=== PATIENT | female | born 1995 | race American Indian/Alaskan Native ===

== ENCOUNTER 2019-04-24 08:54 | Emergency (ER) | payer SELFPAY ==
[2019-04-24 09:06] VITALS: BP 107/65
--- NOTE | 2019-04-24 10:06 | Emergency Department Report ---
ED Syncope HPI - General Chief Complaint: Syncope Stated Complaint: PASSED OUT Time Seen by Provider: 04/24/19 09:58 Source: patient Exam Limitations: no limitations - History of Present Illness Initial Comments: This is a 23-year-old healthy female with no prior medical history presents the ED today after one episode of syncopal episode while she was at work this morning. Patient states that she felt a little sweaty and nauseous before passing out while at work. Patient states she did not hit her head or have any injuries anywhere else. Patient denies fever/chills/nausea vomiting/dizziness/headache/chest pain/shortness of breath or any other symptoms Timing/Prior Episodes: no prior history, single episode today Precipitating Factors: Positive: diaphoresis Context: sitting Loss of Consciousness: brief (seconds) Current Symptoms: back to normal - Related Data Allergies/Adverse Reactions: Allergies No Known Allergies Allergy (Verified 04/24/19 09:15) Home Medications: Ambulatory Orders Ciprofloxacin HCl [Ciprofloxacin TAB] 500 mg PO Q12HR #14 tab 04/24/19 ED Review of Systems ROS: Stated complaint: PASSED OUT Other details as noted in HPI Comment: All other systems reviewed and negative ED Past Medical Hx - Past Medical History Previous Medical History?: No - Surgical History Past Surgical History?: No - Social History Smoking Status: Never Smoker Substance Use Type: None - Medications Home Medications: Home Medications Medication Instructions Recorded Confirmed Last Taken Type Ciprofloxacin HCl [Ciprofloxacin 500 mg PO Q12HR #14 tab 04/24/19 Unknown Rx TAB] ED Physical Exam - General Limitations: No Limitations General appearance: alert, in no apparent distress - Head Head exam: Present: atraumatic, normocephalic - Eye Eye exam: Present: normal appearance - ENT ENT exam: Present: mucous membranes moist - Neck Neck exam: Present: normal inspection - Respiratory Respiratory exam: Present: normal lung sounds bilaterally. Absent: respiratory distress - Cardiovascular Cardiovascular Exam: Present: regular rate, normal rhythm. Absent: systolic murmur, diastolic murmur, rubs, gallop - GI/Abdominal GI/Abdominal exam: Present: soft, normal bowel sounds - Extremities Exam Extremities exam: Present: normal inspection - Back Exam Back exam: Present: normal inspection - Neurological Exam Neurological exam: Present: alert, oriented X3 - Psychiatric Psychiatric exam: Present: normal affect, normal mood - Skin Skin exam: Present: warm, dry, intact, normal color. Absent: rash ED Course Vital Signs 04/24/19 09:05 Temperature 98.6 F Pulse Rate 70 Respiratory 16 Rate Blood Pressure 107/65 O2 Sat by Pulse 98 Oximetry ED Medical Decision Making - Lab Data Result diagrams: 04/24/19 10:06 04/24/19 10:06 Laboratory Last Values WBC 8.0 K/mm3 (4.5-11.0) 04/24/19 10:06 RBC 4.51 M/mm3 (3.65-5.03) 04/24/19 10:06 Hgb 11.6 gm/dl (10.1-14.3) 04/24/19 10:06 Hct 34.0 % (30.3-42.9) 04/24/19 10:06 MCV 76 fl (79-97) L 04/24/19 10:06 MCH 26 pg (28-32) L 04/24/19 10:06 MCHC 34 % (30-34) 04/24/19 10:06 RDW 18.0 % (13.2-15.2) H 04/24/19 10:06 Plt Count 374 K/mm3 (140-440) 04/24/19 10:06 Lymph % (Auto) 20.3 % (13.4-35.0) 04/24/19 10:06 [place] % (Auto) 4.8 % (0.0-7.3) 04/24/19 10:06 Eos % (Auto) 0.4 % (0.0-4.3) 04/24/19 10:06 Baso % (Auto) 0.3 % (0.0-1.8) 04/24/19 10:06 Lymph # 1.6 K/mm3 (1.2-5.4) 04/24/19 10:06 [place] # 0.4 K/mm3 (0.0-0.8) 04/24/19 10:06 Eos # 0.0 K/mm3 (0.0-0.4) 04/24/19 10:06 Baso # 0.0 K/mm3 (0.0-0.1) 04/24/19 10:06 Seg Neutrophils % 74.2 % (40.0-70.0) H 04/24/19 10:06 Seg Neutrophils # 5.9 K/mm3 (1.8-7.7) 04/24/19 10:06 Sodium 140 mmol/L (137-145) 04/24/19 10:06 Potassium 4.3 mmol/L (3.6-5.0) 04/24/19 10:06 Chloride 104.4 mmol/L (98-107) 04/24/19 10:06 Carbon Dioxide 21 mmol/L (22-30) L 04/24/19 10:06 Anion Gap 19 mmol/L 04/24/19 10:06 BUN 10 mg/dL (7-17) 04/24/19 10:06 Creatinine 0.6 mg/dL (0.7-1.2) L 04/24/19 10:06 Estimated GFR > 60 ml/min 04/24/19 10:06 BUN/Creatinine Ratio 17 % 04/24/19 10:06 Glucose 97 mg/dL (65-100) 04/24/19 10:06 Calcium 9.4 mg/dL (8.4-10.2) 04/24/19 10:06 Total Bilirubin 0.40 mg/dL (0.1-1.2) 04/24/19 10:06 AST 21 units/L (5-40) 04/24/19 10:06 ALT 24 units/L (7-56) 04/24/19 10:06 Alkaline Phosphatase 58 units/L (35-129) 04/24/19 10:06 Total Protein 7.8 g/dL (6.3-8.2) 04/24/19 10:06 Albumin 4.3 g/dL (3.9-5) 04/24/19 10:06 Albumin/Globulin Ratio 1.2 % 04/24/19 10:06 Urine Color Yellow (Yellow) 04/24/19 10:20 Urine Turbidity Cloudy (Clear) 04/24/19 10:20 Urine pH 5.0 (5.0-7.0) 04/24/19 10:20 Ur Specific [place] 1.026 (1.003-1.030) 04/24/19 10:20 Urine Protein 30 mg/dl mg/dL (Negative) 04/24/19 10:20 Urine Glucose (UA) Neg mg/dL (Negative) 04/24/19 10:20 Urine Ketones Neg mg/dL (Negative) 04/24/19 10:20 Urine Blood Sm (Negative) 04/24/19 10:20 Urine Nitrite Neg (Negative) 04/24/19 10:20 Urine Bilirubin Neg (Negative) 04/24/19 10:20 Urine Urobilinogen < 2.0 mg/dL (<2.0) 04/24/19 10:20 Ur Leukocyte Esterase Lg (Negative) 04/24/19 10:20 Urine WBC (Auto) 52.0 /HPF (0.0-6.0) H 04/24/19 10:20 Urine RBC (Auto) 11.0 /HPF (0.0-6.0) 04/24/19 10:20 U Epithel Cells (Auto) 10.0 /HPF (0-13.0) 04/24/19 10:20 Urine Bacteria (Auto) 2+ /HPF (Negative) 04/24/19 10:20 Urine Mucus 3+ /HPF 04/24/19 10:20 Urine HCG, Qual Negative (Negative) 04/24/19 10:20 - EKG Data EKG shows normal: sinus rhythm Rate: normal - EKG Data Interpretation: normal EKG - Medical Decision Making This 23-year-old female who presented status post syncopal episode today at work. Patient states she has no symptoms during my evaluation. test was negative. EKG was normal. Patient states that she has been under a lot of stress at work recently. Patient does state that she has a bad habit of not really eating. Patient states she did not have breakfast before work today. Discussed with patient that stress, dehydration and hunger can cause syncopal episodes. All labs were within normal limits. Urinalysis was positive for some bacteria and WBCs. Will treat patient with antibiotics for UTI. Discussed findings with the patient. Discussed with patient to follow-up with primary care physician. Vital signs are normal patient is in no acute distress. Critical care attestation.: If time is entered above; I have spent that time in minutes in the direct care of this critically ill patient, excluding procedure time. ED Disposition Clinical Impression: Acute cystitis Qualifiers: Hematuria presence: with hematuria Qualified Code(s): N30.01 - Acute cystitis with hematuria Episode of syncope Qualifiers: Encounter type: initial encounter Disposition: - TO HOME OR SELFCARE Is pt being admited?: No Does the pt Need Aspirin: No Condition: Stable Instructions: Urinary Tract Infection in Women (ED), Syncope (ED) Additional Instructions: Make sure to follow up with the primary care physician as discussed. Take all your medications as you've been prescribed. If you have any worsening symptoms or develop new symptoms please return to ED immediately. Prescriptions: Ciprofloxacin HCl [Ciprofloxacin TAB] 500 mg PO Q12HR #14 tab Referrals: PRIMARY CARE, [Primary Care Provider] - 3-5 Days [facility] [Outside] - 3-5 Days Forms: Accompanied Note, Work/School Release Form(ED) Time of Disposition: 11:40
[2019-04-24 10:17] LABS: Basophils % (Auto) 0.3 % (0.0-1.8); Eosinophils % (Auto) 0.4 % (0.0-4.3); Hemoglobin 11.6 gm/dl (10.1-14.3); Lymphocytes # (Auto) 1.6 K/mm3 (1.2-5.4); Lymphocytes % (Auto) 20.3 % (13.4-35.0); Mean Corpuscular HGB Conc 34 % (30-34); Mean Corpuscular Volume 76 fl (79-97); Monocytes # (Auto) 0.4 K/mm3 (0.0-0.8); Monocytes % (Auto) 4.8 % (0.0-7.3); Platelet Count 374 K/mm3 (140-440); Red Blood Count 4.51 M/mm3 (3.65-5.03)
[2019-04-24] MEDS ORDERED: SODIUM CHLORIDE 0.9% 1000 ML 1,000 ML IV ONE (10:33)
[2019-04-24 10:40] LABS: Alanine Aminotransferase 24 units/L (7-56); Albumin 4.3 g/dL (3.9-5); BUN/Creatinine Ratio 17; Blood Urea Nitrogen 10 mg/dL (7-17); Calcium 9.4 mg/dL (8.4-10.2); Hemolysis Index 4
[2019-04-24 10:57] LABS: Bacteria,Urine 2+ /HPF (Negative); Bilirubin,Urine NEG (Negative); Blood,Urine SM (Negative); Color,Urine Yellow (Yellow); Mucus,Urine 3+ /HPF; Urobilinogen,Urine < 2.0 mg/dL (<2.0)
[2019-04-24 10:58] LABS: HCG Qualitative,Urine Negative (Negative)
== END 2019-04-24 12:01 | disposition home or self-care (01) ==
LOC: ED 08:54
DX: N30.01 Acute cystitis with hematuria (principal); R55 Syncope and collapse
CPT/HCPCS: 36415; 80053; 81001; 81025; 85025; 87086; 93005; 93010; 96360; 99284; J7030